=== PATIENT | male | born 1990 | race Caucasian/White ===

== ENCOUNTER 2018-05-20 23:56 | Emergency (ER) | payer SELFPAY ==
[~2018-05-20] VITALS: Ht 190.5 cm; Wt 127.3 kg
[~2018-05-20 23:56] MED LIST: LORTAB 5/500 501 TAB PO; NO HOME MEDICATIONS
[2018-05-21 00:02] VITALS: BP 159/98; PULSE 103; TEMP 98.8
[2018-05-21] MEDS ORDERED: VOLTAREN 75 DR75 MG PO (00:36)
== END 2018-05-21 01:00 | disposition home or self-care (01) ==
LOC: COL.ER 23:56
DX: S96.911A Strain of unspecified muscle and tendon at ankle and foot level, right foot, initial encounter (principal); X50.0XXA Overexertion from strenuous movement or load, initial encounter

== ENCOUNTER 2018-08-23 12:45 | Emergency (ER) | payer SELFPAY ==
[~2018-08-23] VITALS: Ht 190.5 cm; Wt 127.3 kg
[~2018-08-23 12:45] MED LIST changes: +VOLTAREN 75 DR75 MG PO
[2018-08-23 12:57] VITALS: BP 129/88; TEMP 97.6
[2018-08-23] MEDS ORDERED: AMOXICILLIN 50500 MG PO (13:41)
[2018-08-23] MEDS ORDERED: CORTISPORIN OTI10 ML OT (13:41)
[2018-08-23 13:51] VITALS: PULSE 82
== END 2018-08-23 13:51 | disposition home or self-care (01) ==
LOC: COL.ER 12:45
DX: H60.91 Unspecified otitis externa, right ear (principal); F17.210 Nicotine dependence, cigarettes, uncomplicated